=== PATIENT | female | born 1940 | race Caucasian/White ===

== ENCOUNTER 2020-09-25 19:25 | Inpatient (IN) ==
[2020-09-25] MEDS ORDERED: MORPHINE 4 MG/1 ML VIAL IV STA (19:39)
[2020-09-25] MEDS ORDERED: ONDANSETRON 4 MG/2 ML VIAL IV STA (19:39)
[2020-09-25] MEDS ORDERED: MORPHINE 4 MG/1 ML VIAL ONE (19:40)
[2020-09-25] MEDS ORDERED: TICAGRELOR 90 MG TABLET PO STA (19:42)
[2020-09-25] MEDS ORDERED: HEPARIN 5,000 UNIT/1 ML VIAL IV STA (19:42)
[2020-09-25 19:46] LABS: Basophils # 0.1 10*3/uL (0.0-0.2); Basophils % 0.4 % (0.0-0.8); Eosinophils # 0.1 10*3/uL (0.0-0.87); Hemoglobin 10.9 GM/DL (12.0-16.0); Immature Granulocytes % 0.4 %; Immature Granulocytes Absolute 0.04 #; Lymphocytes # 3.9 10*3/uL (1.4-4.0); Lymphocytes % 34.2 % (21.3-54.2); Mean Corpuscular Volume 93.2 FL (87-102); Mean Platelet Volume 9.8 FL (9.6-12.0); Monocytes % 4.8 % (1.7-12.7); Neutrophils % 59.2 % (38.7-73.9); Platelet Count 238 T/CUMM (130-400); Red Blood Count 3.54 MC/CUMM (3.8-5.5); Red Cell Distribution Width 12.3 % (9.3-17.3); White Blood Count 11.3 T/CUMM (4-12)
[2020-09-25 19:56] LABS: PT Patient Result 10.9 SECS (9.8-11.9); Partial Thromboplastin Time 24.2 SECS (23.9-33.8)
[2020-09-25] MEDS ORDERED: MIDAZOLAM 2 MG/2 ML VIAL ONE (20:08)
[2020-09-25] MEDS ORDERED: fentaNYL 100 MCG/2 ML VIAL ONE (20:08)
[2020-09-25] MEDS ORDERED: ONDANSETRON 4 MG/2 ML VIAL ONE (20:08)
[2020-09-25] MEDS ORDERED: MORPHINE 10 MG/1 ML VIAL ONE (20:09)
[2020-09-25 20:15] LABS: Alanine Aminotransferase 21 U/L (13-56); Albumin 3.1 G/DL (3.4-5.0); Alkaline Phosphatase 63 U/L (45-117); Aspartate Amino Transferase 31 U/L (0-37); Bilirubin,Total < 0.39 MG/DL (0.2-1.0); Blood Urea Nitrogen 21 MG/DL (7-18); Calcium 6.9 MG/DL (8.5-10.1); Carbon Dioxide 27 MMOL/L (21-32); Estimated Glom Filtration Rate 53 ML/MIN; Glucose 204 MG/DL (74-106); Osmolality,Calculated 287.4 MOS/KG (273-304); Potassium 4.3 MMOL/L (3.5-5.1); Sodium 140 MMOL/L (136-145); Total Protein 6.3 G/DL (6.4-8.3)
[2020-09-25] MEDS ORDERED: HYDROmorphone 2 MG/1 ML VIAL ONE (20:22)
[2020-09-25] MEDS ORDERED: TIROFIBAN 5,000 MCG/100 ML PREMIX IV ONE ×2 (20:44)
[2020-09-25] MEDS ORDERED: NITROPRUSSIDE 50 MG/2 ML VIAL ONE (20:44)
[2020-09-25] MEDS ORDERED: NITROGLYCERIN DRIP 50 MG/250 ML BOTTLE IV ONE (20:44)
[2020-09-25] MEDS ORDERED: HYDROmorphone 2 MG/1 ML VIAL IV PRN (21:02)
[2020-09-25] MEDS ORDERED: NITROGLYCERIN SL 0.4 MG TABLET SL PRN (21:02)
[2020-09-25] MEDS ORDERED: fentaNYL 100 MCG/2 ML VIAL IV PRN (21:02)
[2020-09-25] MEDS ORDERED: DEXTROSE 5% NACL 0.45% 1,000 ML IV SCH (21:30)
[2020-09-26 04:08] LABS: Basophils % 0.2 % (0.0-0.8); Hematocrit 36.3 VOL% (35.7-47.0); Hemoglobin 11.4 GM/DL (12.0-16.0); Immature Granulocytes % 0.4 %; Immature Granulocytes Absolute 0.04 #; Lymphocytes % 8.8 % (21.3-54.2); Mean Corpuscular HGB Conc 31.4 GM/DL (32-36); Mean Corpuscular Volume 96.5 FL (87-102); Mean Platelet Volume 10.2 FL (9.6-12.0); Monocytes % 5.2 % (1.7-12.7); Neutrophils % 85.4 % (38.7-73.9); Platelet Count 207 T/CUMM (130-400); Red Blood Count 3.76 MC/CUMM (3.8-5.5); Red Cell Distribution Width 12.5 % (9.3-17.3); White Blood Count 11.2 T/CUMM (4-12)
[2020-09-26 05:44] LABS: Blood Urea Nitrogen 19 MG/DL (7-18); Calcium 9.1 MG/DL (8.5-10.1); Carbon Dioxide 27 MMOL/L (21-32); Estimated Glom Filtration Rate 47 ML/MIN; Glucose 157 MG/DL (74-106); HDL Cholesterol 60 MG/DL (40-60); Osmolality,Calculated 281.5 MOS/KG (273-304); Potassium 4.1 MMOL/L (3.5-5.1); Risk Ratio 3.07; Sodium 139 MMOL/L (136-145); Triglycerides 80 MG/DL (2-150)
[2020-09-26 05:49] LABS: Troponin I > 200.000 NG/ML (0.00-0.045)
[2020-09-26] MEDS ORDERED: ONDANSETRON 4 MG/2 ML VIAL ONE (07:49)
[2020-09-26] MEDS: ONDANSETRON 4 MG/2 ML VIAL IV PRN ×2 (08:02→13:18)
[2020-09-26] MEDS: PANTOPRAZOLE 40 MG TABLET PO SCH (08:15)
[2020-09-26] MEDS: METOPROLOL TARTRATE 25 MG TABLET PO SCH ×2 (08:15→20:58)
[2020-09-26] MEDS: TICAGRELOR 90 MG TABLET PO SCH ×2 (08:15→20:58)
[2020-09-26] MEDS: lisinopriL 2.5 MG TABLET PO SCH (08:15)
[2020-09-26] MEDS: ASPIRIN EC 81 MG TABLET PO SCH (08:15)
[2020-09-26] MEDS ORDERED: PROMETHAZINE 25 MG/1 ML VIAL IM PRN (09:04)
[2020-09-26] MEDS: ROSUVASTATIN 20 MG TABLET PO SCH (20:58)
[2020-09-27] MEDS: METOPROLOL TARTRATE 25 MG TABLET PO SCH ×2 (08:20→20:55)
[2020-09-27] MEDS: lisinopriL 2.5 MG TABLET PO SCH (08:20)
[2020-09-27] MEDS: PANTOPRAZOLE 40 MG TABLET PO SCH (08:20)
[2020-09-27] MEDS: TICAGRELOR 90 MG TABLET PO SCH ×2 (08:20→20:55)
[2020-09-27] MEDS: ASPIRIN EC 81 MG TABLET PO SCH (08:20)
[2020-09-27 08:52] LABS: Basophils % 0.3 % (0.0-0.8); Hematocrit 32.8 VOL% (35.7-47.0); Hemoglobin 10.8 GM/DL (12.0-16.0); Immature Granulocytes % 0.4 %; Immature Granulocytes Absolute 0.04 #; Lymphocytes # 1.2 10*3/uL (1.4-4.0); Lymphocytes % 12.2 % (21.3-54.2); Mean Corpuscular HGB Conc 32.9 GM/DL (32-36); Mean Platelet Volume 10.4 FL (9.6-12.0); Monocytes % 7.3 % (1.7-12.7); Neutrophils % 79.8 % (38.7-73.9); Platelet Count 182 T/CUMM (130-400); Red Blood Count 3.49 MC/CUMM (3.8-5.5); Red Cell Distribution Width 12.7 % (9.3-17.3); White Blood Count 9.7 T/CUMM (4-12)
[2020-09-27 09:07] LABS: Calcium 9.5 MG/DL (8.5-10.1); Osmolality,Calculated 287.1 MOS/KG (273-304); Potassium 3.8 MMOL/L (3.5-5.1)
[2020-09-27 14:15] LABS: CKMB % 3.6 %
[2020-09-27 14:17] LABS: Troponin I 78.7 NG/ML (0.00-0.045)
[2020-09-27] MEDS: ROSUVASTATIN 20 MG TABLET PO SCH (20:55)
[2020-09-28 05:19] LABS: Basophils % 0.4 % (0.0-0.8); Eosinophils % 0.4 % (0.00-10.9); Hematocrit 33.6 VOL% (35.7-47.0); Hemoglobin 11.4 GM/DL (12.0-16.0); Immature Granulocytes % 0.6 %; Immature Granulocytes Absolute 0.05 #; Lymphocytes # 1.7 10*3/uL (1.4-4.0); Lymphocytes % 19.4 % (21.3-54.2); Mean Corpuscular HGB Conc 33.9 GM/DL (32-36); Mean Corpuscular Volume 91.3 FL (87-102); Mean Platelet Volume 10.9 FL (9.6-12.0); Monocytes % 8.1 % (1.7-12.7); Neutrophils % 71.1 % (38.7-73.9); Platelet Count 181 T/CUMM (130-400); Red Blood Count 3.68 MC/CUMM (3.8-5.5); Red Cell Distribution Width 12.4 % (9.3-17.3); White Blood Count 8.9 T/CUMM (4-12)
[2020-09-28 05:49] LABS: CKMB % 1.8 %; Osmolality,Calculated 280.4 MOS/KG (273-304); Potassium 3.5 MMOL/L (3.5-5.1)
[2020-09-28 05:50] LABS: Troponin I 53.3 NG/ML (0.00-0.045)
[2020-09-28 07:47] VITALS: BP 108/59
[2020-09-28] MEDS: lisinopriL 2.5 MG TABLET PO SCH (08:32)
[2020-09-28] MEDS: ASPIRIN EC 81 MG TABLET PO SCH (08:33)
[2020-09-28] MEDS: PANTOPRAZOLE 40 MG TABLET PO SCH (08:33)
[2020-09-28] MEDS: METOPROLOL TARTRATE 25 MG TABLET PO SCH (08:33)
[2020-09-28] MEDS: TICAGRELOR 90 MG TABLET PO SCH (08:33)
== END 2020-09-28 10:27 | disposition home or self-care (01) | DRG 247 ==
LOC: N.ED 19:25 → N.ICU 20:00 → N.TELEN 09-26 10:03
PROVIDERS: ADMIT Internal Medicine Interventional Cardiology; ATTEND Internal Medicine Interventional Cardiology